=== PATIENT | male | born 1960 | race Caucasian/White ===

== ENCOUNTER 2023-06-10 12:44 | Observation (INO) | payer OTHER, SELFPAY ==
[2023-05-27 10:53] LABS: Absolute Lymphocytes (CBC) 1.3 K/uL (0.7-4.9); Hematocrit 45.9 % (39.6-49.0); Lymphocytes % 17.3 % (15.3-44.8); MCV 91.1 fL (80-100); MPV 9.1 fL (7.6-11.3); Platelets 160 thou/uL (152-406); RBC Red Blood Cell Count 5.04 M/uL (4.33-5.43)
[2023-05-27 10:54] LABS: Protime INR 1.09
[2023-05-27 11:07] LABS: Potassium 4.4 mEq/L (3.5-5.1)
--- NOTE | 2023-05-27 11:25 | RAD REPORT ---
EXAM DESCRIPTION: RAD - Chest Pa And Lat (2 Views) - 05/27/2023 10:45 am CLINICAL HISTORY: pre op urolift. Hypertension COMPARISON: No comparisons TECHNIQUE: PA and lateral views of the chest were obtained. FINDINGS: The lungs are clear. Heart size is normal and central vasculature is within normal limits. No pleural effusion or pneumothorax seen. No acute bony finding noted. IMPRESSION: No acute cardiopulmonary process.
--- NOTE | 2023-06-03 14:13 | EKG ---
Test Date: 2023-05-27 Test Time: 11:32:41 [employer]itness Club Manager: HILDA MEASUREMENT RESULTS: Intervals: Rate: 53 KS: 158 QRSD: 88 QT: 414 QTc: 388 [place]: P: 45 KS: 158 QRS: 37 T: 13 INTERPRETIVE STATEMENTS: Sinus bradycardia Otherwise normal ECG No previous ECG available for comparison Electronically Signed On 06-03-23 13:48:56 BUSINESS SPECIALIST by Jarrett Champagne
[2023-06-10] MEDS ORDERED: Ringers Lactate 1,000 ML IV ONE ×3 (13:05→22:38)
[2023-06-10] MEDS ORDERED: MIDAZOLAM HCL 2 MG/2 ML INJ ONE ×3 (16:12→18:15)
[2023-06-10] MEDS ORDERED: propofoL 200 MG/20 ML VIAL IV ONE ×2 (16:12→20:45)
[2023-06-10] MEDS ORDERED: FENTANYL CITR 100 MCG/2 ML ONE ×3 (16:12→21:01)
[2023-06-10] MEDS ORDERED: PHENAZOPYRIDINE 100MG TAB PO ONE (16:23)
[2023-06-10] MEDS ORDERED: CODEINE 30MG/APAP 300MG TAB PO PRN (16:23)
[2023-06-10] MEDS ORDERED: CEFAZOLIN SODIUM 1 GM/VIAL ONE ×3 (16:29→21:36)
[2023-06-10] MEDS ORDERED: OXYBUTYNIN ER 5 MG TAB PO ONE (17:24)
[2023-06-10] MEDS: MEPERIDINE HCL 25 MG/ML SYR ONE ×4 (17:27→22:21)
[2023-06-10] MEDS ORDERED: DIAZEPAM 5 MG TABLET ONE (17:28)
[2023-06-10] MEDS ORDERED: CODEINE 30MG/APAP 300MG TAB ONE (18:57)
[2023-06-10] MEDS ORDERED: ONDANSETRON 4 MG/2 ML VIAL IV PRN (19:39)
[2023-06-10] MEDS ORDERED: NACL 0.9% IRRG SOLN 1000 ML IRR PRN (19:39)
[2023-06-10] MEDS ORDERED: TRAMADOL 37.5mg/APAP 325mg PER TAB PO PRN (19:39)
[2023-06-10] MEDS ORDERED: OXYBUTYNIN ER 5 MG TAB PO PRN (19:39)
[2023-06-10] MEDS ORDERED: SODIUM CHL 0.9% IRR SOLN 2000 ML IRR SCH (20:00)
[2023-06-10] MEDS ORDERED: HYDRALAZINE HCL 20 MG/ML VIAL IV ONE (20:23)
--- NOTE | 2023-06-10 20:23 | OP ---
Surgeon: JOSIAS WARE Preoperative Diagnoses: Benign prostatic hypertrophy with lower urinary tract obstruction and sympto ms. Postoperative Diagnoses: 1.Benign prostatic hypertrophy with lower urinary tract obstruction and symptoms. 2.Gross hematuria. Principal Procedure: Prostatic urethral lift/UroLift with 7 implants placed. Indication For Procedure: Mr. Espinal presented to the [facility]rology Clinic in evaluation of elevated PSA and was found to have obstructive lower urinary tract symptoms. He was treated with alpha-mirella th erapy and underwent a biopsy of his prostate without any malignancy identified, but significant infla mmation noted throughout the gland. His prostate was approximately 65 g in size, and he was counsele d on options for management of his prostatic urethral obstruction to include the addition of a 5-alph a reductase inhibitor or surgical therapy potentially done via the UroLift. He elected to proceed wi surgical therapy. Procedure In Detail: The patient was consented in the preoperative holding area before being transfe rred to the operative suite where general anesthesia was induced. He was given Ancef 2 g IV antimicr obial prophylaxis, and pneumo boots were provided for DVT prophylaxis. He was placed in the lithotom y position, padded and secured to the table appropriately. His genitalia were prepped with Hibiclens and he was draped in standard fashion. The case was begun using a 20-[place] Citizen UroLift sheath and a vi sual obturator to traverse the urethra and into the bladder with relative ease. The bladder was deco mpressed of fluid and urine, and of note, just with passage of the cystoscope via the prostatic ureth ra, there was already a degree of hematuria that was initiated. As a result, I then switched the vis ual obturator for the first UroLift implant and delivery device, and I targeted the patient's left la teral wall of the prostate approximately 2 cm distal to the bladder neck. I angled the scope approxi mately 15 degrees laterally and pulled the trigger once deploying the needle through the substance of the prostate. I then angled the scope an additional 15 degrees laterally to ensure complete deliver y of the needle outside the capsular surface. I then pulled the trigger a second time deploying the capsular tab and partially retracting the needle. I then pulled the trigger a third time tensioning the suture before advancing the scope back toward the midline and then toward the bladder neck about 2 to 3 mm until the white line of the monofilament was centered in the delivery bay. At this point, I pulled the trigger a fourth time applying the urethral end-piece and tailoring the suture. The ure thral end-piece did situate nicely with a rim of prostate tissue between it and the bladder neck open ing, and did seem to lateralize the left portion of the bladder neck. I thus advanced the scope back into his bladder and switched the UroLift delivery device for a new implant. This time, I targeted the patient's right lateral wall of the prostate anterolaterally and about 1.5 cm distal to the bladd er neck opening. I went through the steps described above before ultimately deploying the urethral e nd-piece which did situate with approximately 0.25 cm of prostatic tissue between it and the opening into the bladder. After the initial implant was placed followed by the second implant, the anterior commissure did seem to separate a bit and encouraged even further gross hematuria than what had been observed initially. However, with enhanced techniques to irrigate and evacuate his bladder, I was ab le to switch to a new UroLift implant which was targeted at the level of the verumontanum on the mika ent's left side at around the 2 o'clock position. A similar fourth implant was placed on the right s temitope at the apex at the level of the verumontanum at around the 10 to 11 o'clock position. I then jason veyed the channel created using a visual obturator, and there was still significant residual lateral lobar tissue, largely emanating from the patient's right lateral wall of the prostate. As a result, I targeted the fifth implant in that tissue between the apical implant and the bladder neck implant o n the right at around the 9 o'clock position. A repeat survey of the channel did reveal some persist ent tissue emanating from the patient's right lateral wall of the prostate, but also potentially some mild residual narrowing at the bladder neck. As a result, I placed a sixth implant at the patient's bladder neck on the left in a stacked fashion higher than the previously placed implant, which did e stanley better lateralize the tissue in that location and open a channel. Survey of the channel created did reveal a degree of mild residual lateral lobar hypertrophy again emanating from the patient's rig ht side; so I placed a seventh implant in that apical mid gland tissue perhaps in a stacked fashion f rom before and this did indeed create a beautiful continuous anterior channel visible anteriorly from the level of the verumontanum all the way into the bladder neck. Of note, there was persistent monica s hematuria throughout the process that made visualization slightly difficult. As a result, I electe d to place a 20-[place] Citizen coude tipped urethral Abel catheter into his bladder, and I irrigated the cat heter to the tune of persistent pink urine. As a result, I decided to switch the catheter to a 22-Fr ench 3-way Abel catheter where I placed 30 cc of sterile water in the balloon, and I irrigated the c atheter with minimally pink return of fluid before connecting him to slow to moderate drip CBI with t he efflux of urine and fluid being light pink. As a result, he was taken out of the lithotomy positi on, transferred to a stretcher, and then transferred to the recovery room in good condition. Complications: None. Discharge Disposition: While we would plan for him to progress through the standard UroLift pathway and be given a voiding trial this evening, if the degree of hematuria remains persistent, we may need to continue the CBI overnight and ultimately continue catheterization with anticipated discharge corona rosas. GUERLINE/MODL Voice ID: [id number] Report ID: [id number]
[2023-06-10] MEDS ORDERED: SUCCINYLCHOLINE 20 MG/ML (10 ML) IV ONE (20:42)
--- NOTE | 2023-06-10 22:34 | P.OP ---
Date of Service: 06/10/23 Preoperative diagnoses: BPH with LUTS Status post UroLift with 7 implants placed earlier today Persistent/refractory gross hematuria Postoperative diagnoses: BPH with LUTS Status post UroLift with 7 implants placed earlier today Persistent/refractory gross hematuria Suspected bleeding/clotting disorder with history of hepatitis C Principal procedures: Cystoscopy with clot evacuation using Ilich evacuator Bipolar transurethral fulguration of the prostatic fossa Urethral dilation using sounds Placement of a urethral Abel catheter Indication for procedure: Mr. Espinal is a 62-year-old gentleman with BPH with LUTS refractory to medical therapy and a history of elevated PSA status post negative prostate biopsy, revealing significant inflammation. He elected to proceed with surgical therapy for his LUTS and 65 g gland, and he underwent UroLift with 7 implants placed earlier this evening. Immediately during the procedure, significant gross hematuria was observed, which persisted throughout the procedure. 22 Croatian three-way Abel catheter was placed and the patient was sent to the recovery with CBI on slow to moderate drip and the urine was light pink. He continued to have significant bleeding resulting in clots and causing significant bladder spasms and pelvic discomfort. As a result, despite efforts to manually irrigate his bladder and to reposition the catheter for CBI, ultimately he continued to bleed and evaluation operatively was required. Procedure note: The patient was consented in the preoperative holding area before being transferred to the operative suite where general anesthesia was induced. He was given 1 g Ancef IV antimicrobial prophylaxis, and pneumoboots were provided for DVT prophylaxis. He was placed in the lithotomy position, padded and secured to the table appropriately. His genitalia was prepped with Hibiclens that he was draped in standard fashion. Urethral sounds were used to dilate the meatus and fossa navicularis to 30 [address] in order to place a 26 Croatian bipolar resectoscope sheath using a visual obturator. The urethra was traversed, and significant clot was encountered in the prostatic urethra on the way into the bladder. As a result, Ilich evacuation was used to remove that clot as the bladder would not drain despite the scope being in place. After removal of approximately 100 to 150 cc of clot, I was then able to survey the bladder removing additional small clots in the process. I surveyed the entirety of the bladder neck anteriorly in the region of the UroLift implant placement, and there were no implants present within the intravesical lumen nor any sutures or bleeding from the bladder side of the bladder neck surface. As a result, I backed the scope into the prostatic fossa where oozing from each of the implant sites was observed. Persistent oozing required use of a bipolar resection loop to fulgurate the area around and overlying the urethral in pieces for each of the 7 implants encountered. I further fulgurated the anterior commissure, which was oozing due to a degree of separation caused by the lateralization of the tissue using the UroLift implant in that location at the bladder neck. After fulguration of the entirety of the anterior channel that had been created, which was beautiful and continuous from the verumontanum all the way into the bladder neck, I then decompressed his bladder completely of fluid and urine and surveyed the channel for any residual oozing. I fulgurated each and every single capillary ooze of blood with his bladder completely decompressed and no fluid inflow to ensure the area was completely hemostatic. I then retrograde filled his bladder with 50 to 100 cc of sterile saline and remove the resectoscope. There was E flux of clear fluid at this point from the phallus. I then placed an 18 [place]ian coud catheter via his urethra into his bladder with ease and placed 15 cc of sterile water in the balloon. The catheter was then allowed to decompress, and the drainage was completely clear. I thus connected the catheter to a floor bag, and the patient was taken out of the lithotomy positio n. He was then awakened from general anesthesia, transferred to a stretcher, and then transferred to the recovery room in good condition. In recovery, his urine was pinkish-orange and translucent, but a portion of this was due to the Pyridium given earlier. We thus observed him over the course of the next several minutes and ultimately transferred him to the floor off CBI. Complications: None Discharge disposition: I suspect a clotting disorder relative to the patient's history of hepatitis C, as the degree of chronic bleeding was atypical for UroLift implantation. He may benefit from manager perioperative evaluation or agribusiness professor evaluation as an outpatient. He will be admitted overnight and observed, with Valium and Ditropan for bladder spasms as well as tramadol for pain control given his concern about narcotic use and his history of narcotic abuse. As long as his urine is not terribly bloody tomorrow morning, the catheter will be removed, and he will be given a voiding trial. Follow-up per UroLift routine in approximately 1 month. Repeat PSA in 6 months. Findings and Operative Technique
[2023-06-10] MEDS: NA CHLORIDE 0.9% 1,000 ML IV SCH (23:36)
[2023-06-11] MEDS ORDERED: CEFAZOLIN 1 GM in NA CHLORIDE 0.9% 50 ML IVPB SCH (01:00)
[2023-06-11] MEDS: DIAZEPAM 5 MG TABLET PO PRN ×2 (01:24→08:29)
[2023-06-11 01:59] VITALS: O2SAT 98; BMI 28.0
[2023-06-11 02:36] LABS: Absolute Lymphocytes (CBC) 0.9 K/uL (0.7-4.9); Hematocrit 40.9 % (39.6-49.0); Lymphocytes % 5.6 % (15.3-44.8); MCV 91.2 fL (80-100); MPV 9.2 fL (7.6-11.3); Platelets 138 thou/uL (152-406); RBC Red Blood Cell Count 4.48 M/uL (4.33-5.43)
[2023-06-11 04:30] LABS: Blood Morphology Comment NOT SEEN (NOT SEEN); Platelet Estimate ADEQ
[2023-06-11] MEDS: NA CHLORIDE 0.9% 1,000 ML IV SCH ×2 (05:28→12:00)
[2023-06-11] MEDS ORDERED: LEVOTHYROXINE SOD 0.1 MG TAB PO SCH (06:30)
[2023-06-11 13:53] VITALS: BP 112/56; TEMP 98
== END 2023-06-11 15:30 | disposition home or self-care (01) ==
LOC: OR 12:44 → 2ND 19:39
PROVIDERS: ADMIT Urology; ATTEND Urology
PROC: 0TCB8ZZ Extirpation of Matter from Bladder, Via Natural or Artificial Opening Endoscopic (ICD-10-PCS; 2023-06-10)
PROC: 0T7D8DZ Dilation of Urethra with Intraluminal Device, Via Natural or Artificial Opening Endoscopic (ICD-10-PCS; principal; 2023-06-10 14:00)
DX: N40.1 Benign prostatic hyperplasia with lower urinary tract symptoms (principal); N13.8 Other obstructive and reflux uropathy; R31.0 Gross hematuria; E03.9 Hypothyroidism, unspecified; E78.5 Hyperlipidemia, unspecified; Z86.19 Personal history of other infectious and parasitic diseases
CPT/HCPCS: 52441; 52442 ×6; 52001; 93005 ×2; 87088; 85025 ×2; 87086; 80048; 36415 ×2; 85610; 82947; 71046; J0360; J2704 ×2; J2250 ×2; J3010 ×3; J2175 ×2; G0378 ×3; J7120 ×3; J7030 ×2; J0690 ×3; G0379